=== PATIENT | male | born 2000 | race Caucasian/White ===

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

== ENCOUNTER → 2021-11-24 | Outpatient (CLI) | payer BC ==
--- NOTE | 2021-11-25 02:48 | MR ---
EXAMINATION TYPE: MR brain wo/w con DATE OF EXAM: 11/24/2021 COMPARISON: HISTORY: Migraines, and atypical visual spells, history of aneurysm CONTRAST: Standard multiplanar, multisequence MRI departmental protocol images were obtained without contrast a nd with 5.5 mL intravenous Gadavist gadolinium contrast. Ventricles are relatively large in this young patient. I do not see evidence for obstructive hydroce phalus. Diffusion images show no evidence of an acute infarct. Brainstem is intact. Corpus callosum is intact . Sella turcica appears normal. Rodriguez-white matter structures have fairly normal signal pattern. No ev idence of cerebral edema. There is a rounded 1 cm focus of enhancement in the posterior fossa on the right side adjacent to the transverse sinus that could be venous aneurysm. There is normal enhancement of the venous sinuses. IMPRESSION: Mild prominence of the ventricles but no sign of obstructive type hydrocephalus. No evidence of an ac [place] infarct. 1 cm focus of enhancement that could be venous aneurysm in the right lateral posterior f mariel. Mild right maxillary sinusitis
--- NOTE | 2021-11-25 03:43 | MR ---
EXAMINATION TYPE: MR angio head wo con DATE OF EXAM: 11/24/2021 COMPARISON: None HISTORY: Migraines, and atypical visual spells, history of aneurysm MR angiographic images of the brain obtained without contrast. There is arterial flow in the distal internal carotid arteries bilaterally. There is arterial flow in the vertebral basilar artery system. There is arterial flow in the anterior middle and posterior cerebral arteries. No evidence of any sig nificant flow in the posterior communicating arteries. No mass effect. No evidence of intracranial aneurysm or neovascularity. No evidence of hemodynamic st enosis. IMPRESSION: Negative MR angiogram of the brain.
== END | disposition home or self-care (01) ==
LOC: RADMRIMAIN 18:33
PROVIDERS: ATTEND Psychiatry & Neurology Neurology
DX: I67.1 Cerebral aneurysm, nonruptured (principal); H55.89 Other irregular eye movements; Q85.1 Tuberous sclerosis
CPT/HCPCS: 70544; 70553; A9585

== ENCOUNTER → 2024-03-10 | Outpatient (CLI) | payer BC ==
--- NOTE | 2024-04-03 11:31 | CONS ---
CONSULTATION HISTORY OF PRESENT ILLNESS: This is a 23-year-old male patient presenting with excessive fatigue and daytime sleepiness. Today, he is accompanied by the mother. The patient has been having this issue for several years. In fact, his symptoms got worse approximately 2 years ago after an open-heart cardiac surgery. He is known to have Sherin-Danlos syndrome and the patient was found to have a thoracic aortic aneurysm and a unicuspid/bicuspid aortic valve. He underwent an extensive cardiac surgery with replacement of aortic roots and surgical grafting of the ascending aorta that was done in [facility]. The patient's surgery was successful. Since then, he has been having excessive fatigue and daytime sleepiness as the patient is sleeping many hours and he is still feeling very much tired and sleepy during the day. He is driving, does not fall asleep while driving. No snoring. He goes to bed around 3 to 4 a.m. and gets out of bed around 1 p.m. in the evening. His functionality is impaired and he does not think he can go to classes or school because of his ongoing symptoms. He frequently wets his bed and he has symptoms of enuresis. His sleep is non-fragmented. His current Meally score is at 8. No grinding. No restlessness in lower extremities. He has chronic depression, currently on Prozac. No sleep paralysis. No cataplexy. He does have occasional hypnagogic hallucinations. No personal or family history of narcolepsy. No head trauma. No history of stroke. No substance abuse. No alcoholism. No excessive intake of caffeinated beverages. PAST MEDICAL HISTORY: 1. Sherin-Danlos syndrome. 2. Ascending aortic aneurysm, post surgical repair. 3. Bicuspid aortic valve. 4. Chronic anxiety/depression. 5. History of childhood attention deficit disorder. 6. History of childhood asthma, which is currently inactive and stable. 7. Nocturnal enuresis. FAMILY HISTORY: Positive for hypertension in maternal grandmother. Hyperlipidemia in maternal grandmother. Maternal grandfather had hypertension and hyperlipidemia in addition. Mother has cardiac arrhythmias including PVT, SVT, and AVNRT. Father has anxiety and obesity and attention deficit disorder. The patient has a sister with trisomy 21 syndrome and another brother with Sherin-Danlos syndrome. SURGICAL HISTORY: Includes surgical repair of an ascending aortic aneurysm including the aortic root. The patient also has had tonsillectomy and adenectomy, hernia repair and wisdom teeth removal. SOCIAL HISTORY: Nonsmoker. No history of alcohol. No history of IV drugs. MEDICATIONS: Include Prozac 40 mg p.o. daily. DRUG ALLERGIES: Not known. REVIEW OF SYSTEMS: A 14-point review of systems was done and positive findings are mentioned in above History of Present Illness. No recent weight gain. He has tiredness and sleepiness and difficulty with attention and memory and concentration. He has also history of depression. No heartburn. No palpitations. No panic. No sleep walking. Positive bedwetting and enuresis. No sleep talking. PHYSICAL EXAMINATION: VITAL SIGNS: BP is 120/77, pulse 67, respirations 16, temperature 98.2. Weight is 140 pounds, BMI 19.7. Meally score is at 8. Neck size is 14-1/3 of an inch. GENERAL APPEARANCE: Calm and comfortable. No acute distress. HEAD: Atraumatic, normocephalic. NECK: Supple. No JVD. No goiter or neck masses. Mallampati class 1. LUNGS: Diminished, otherwise clear. HEART: Sounds regular rate and rhythm. Normal S1, S2. Positive murmur, grade 2 along with thoracotomy scar over the anterior chest. ABDOMEN: Soft and nontender. No organomegaly. EXTREMITIES: No edema. No cyanosis or clubbing. ASSESSMENT: 1. Chronic hypersomnia, Meally score of 8. Exact etiology is not clear. Sleep apnea is doubtful. Narcolepsy is possible, although doubtful. Could be related to comorbidities as stated above. 2. Delayed sleep phase syndrome. 3. Sherin-Danlos syndrome. 4. Ascending aortic aneurysm, status post surgical repair. 5. Bicuspid aortic valve. 6. History of depression, maintained on Prozac. 7. Nocturnal enuresis. 8. History of childhood asthma. 9. History of childhood attention deficit disorder. PLAN: Discussed findings with the patient. My overall suspicion for sleep apnea is low. Nevertheless, based on his excessive fatigue and sleepiness, which is affecting daytime functionality, I think it is reasonable to do a PSG and second day MSLT to rule out the possibility of obstructive sleep apnea and rule out narcolepsy and at same time objectively quantify his daytime sleepiness. Obviously, he may be a good candidate for stimulation therapy at later stage depending on the PSG and MSLT findings. Maintain good sleep hygiene measures. He wants to maintain the same sleep schedule, which is quite delayed. We will continue Prozac for now. I suggested stopping the Prozac at least 2 weeks prior to the PSG/MSLT for testing purposes. We will continue to follow and make further recommendations based on the findings. MMODL / IJN: [id number] /
== END ==
LOC: 3 N SLEEP 13:00
PROVIDERS: ATTEND Internal Medicine Critical Care Medicine
CPT/HCPCS: 99211

== ENCOUNTER 2024-04-28 19:42 | Outpatient (CLI) | payer BC, OTHER ==
--- NOTE | 2024-05-04 21:53 | P.PCN ---
Date of Procedure: 04/28/24 Operative Findings: Polysomnography report Date of service is 04/28/2024 History A 23-year-old male patient presented to the sleep center with complaints of excessive fatigue and daytime sleepiness. The patient has been having this issue for several years. Symptoms got worse over the past 2 years following an open heart surgery. The patient has history of Sherin-Danlos syndrome and he was found to have a thoracic aortic aneurysm with a unicuspid/bicuspid aortic valve. He underwent extensive cardiac surgery and replacement of the aortic root and surgical grafting of the ascending aorta and this was done at [facility]. The patient has history of chronic anxiety/depression, childhood attention deficit disorder, asthma and nocturnal enuresis. The Gaylord score was 8. No reported snoring. He goes to bed at around 3 to 4 AM and gets out of bed at 1 PM in the morning. No sleep paralysis. No hallucinations. No cataplexy. No grinding. No restlessness in lower extremities and the patient has been on Prozac for chronic depression. Pertinent physical findings Weight is 130 pounds with a body mass index of 19.8 Technical description The patient was studied using a standard complex polysomnography protocol that included recording of the Lead II EKG, Central, occipital and frontal EEG, right and left outer canthus EOG, submental EMG, right and left anterior tibialis EMG, respiratory airflow by thermocouple and or pressure/flow transducer, respiratory efforts by abdominal and thoracic PVDF belts, oxygen saturation by cable oximetry. Position by observation synchronized the PSG. Equipment used: [employer]. Sleep architecture The total recording duration was 453 minutes. The total sleep time was 232.5 minutes. The wake after sleep onset time was 196.5 minutes. Overall sleep efficiency was 51.3%. The latency to sleep onset was 22.5 minutes. Latency to REM sleep was 45.5 minutes. The sleep architecture was characterized by 11.6% stage I, 2.2% stage I, 46.7% stage II, 39.6% stage III. The total arousal index was 10.1 Respiratory analysis The sleep study showed a total of 7 obstructive events of which 1 was obstructive apnea, 0 was mixed apneas 6 was obstructive hypopnea and the resulting apnea-hypopnea index was 4.4. The patient also had 10 central events with a central apnea index of 2.6. The respiratory arousal index was 0.8 Oxygenation analysis The baseline oxygen saturation was 96% while awake. Lowest pulse ox recorded during the sleep study was 90%. The patient spent majority of sleep time with a pulse ox of above 90%. Sleep continuity summary The patient had a total of 39 arousals with an index of 10.1. Respiratory arousal index was 0.8 Periodic limb movement summary None Cardiac summary Average heart rate was 66 with a minimum heart rate of 62 and a maximum heart rate of 73 and the rhythm was essentially sinus. Assessment No evidence of any significant sleep breathing disorder. AHI was 4.4. Central apnea index was 2.6 without any significant nocturnal oxygen saturation Poor sleep efficiency calculated to be at 51.3% Abnormal sleep architecture with over representation of stage III sleep along with diminished stage I and stage II and REM Delayed sleep phase syndrome chronic fatigue and sleepiness, Gaylord score of 8 Sherin-Danlos syndrome Ascending aortic aneurysm status postsurgical repair Bicuspid aortic valve Depression maintained on Prozac Childhood asthma ADHD Plan No need for CPAP therapy Symptoms are unlikely to be related to any form of sleep breathing disorder Regulating patient's sleep schedule as the patient has an obvious component of delayed sleep phase syndrome Implement good sleep hygiene principles Continue [facility] Will continue to follow
== END 2024-04-29 07:10 | disposition home or self-care (01) ==
LOC: 3 N SLEEP 19:42
PROVIDERS: ATTEND Internal Medicine Critical Care Medicine
CPT/HCPCS: 95810

== ENCOUNTER → 2024-06-02 | Outpatient (CLI) | payer BC, OTHER ==
[2024-06-02 16:06] VITALS: BP 122/71; PULSE 70; RESP 16; TEMP 97.5
--- NOTE | 2024-06-02 16:40 | P.PN ---
Progress Note - Text Progress Note Date: 06/02/24 On today's evaluation of 06/02/2024, the patient is coming in to discuss the results of the polysomnography that the patient underwent on 04/28/2024. In summary, the patient came to me for excessive fatigue and sleepiness. He also had delayed sleep phase syndrome as the patient was going to bed at around 3 to 4 AM and he was getting out of bed at 1 PM. The patient was also feeling excessively fatigued and sleepy. He remains on Prozac for chronic depression. He also has multiple comorbidities including history of Sherin-Danlos syndrome, bicuspid aortic valve, and he has had previous ascending aortic aneurysm repair. Based on all this, a polysomnography was done and the polysomnography did not show evidence of any sleep eating disorder. The patient AHI was 4.4. No evidence of any nocturnal oxygen desaturations. As expected, the overall sleep efficiency was poor at 61.3%. The sleep architecture was also abnormal with over representation of stage III sleep. This is part related to his delayed sleep phase syndrome. The results of the sleep study were discussed with the patient. He maintains the same sleep schedule. Blood pressure is 122/71 with a pulse of 70 and a respiration of 16 with a temperature of 97.5. Pulse ox is 99% room air oxygen The patient appeared well nourished and normally developed. Vital signs as documented. Head exam is unremarkable. No scleral icterus or corneal arcus noted. Neck is without jugular venous distension, thyromegaly, or carotid bruits. Carotid upstrokes are brisk bilaterally. Lungs are clear to auscultation and percussion. Cardiac exam reveals the PMI to be normally sized and situated. Rhythm is regular. First and second heart sounds normal. No murmurs, rubs or gallops. Abdominal exam reveals normal bowel sounds, no masses, no organomegaly and no aortic enlargement. Extremities are nonedematous and both femoral and pedal pulses are normal. Examination of the skin revealed no evidence of significant rashes, suspicious appearing nevi or other concerning lesions. Neurologically, the patient is awake and alert and the patient does not have any focal neurological deficit. Cranial nerves are essentially intact. Assessment Chronic hypersomnia, multifactorial. Rule out is connected to disease and comorbidities including depression contributing to his chronic fatigue and sleepiness. There is no evidence of any sleep breathing disorder. At the same time, the patient has delayed sleep phase syndrome which is probably is making this patient tired and sleepy during the day. As stated, there is no evidence of any significant sleep breathing disorder. AHI was 4.4. Central apnea index was 2.6 without any significant nocturnal oxygen saturation Poor sleep efficiency calculated to be at 51.3% Abnormal sleep architecture with over representation of stage III sleep along with diminished stage I and stage II and REM Delayed sleep phase syndrome chronic fatigue and sleepiness, Harrell score of 8 Sherin-Danlos syndrome Ascending aortic aneurysm status postsurgical repair Bicuspid aortic valve Depression maintained on Prozac Childhood asthma ADHD Plan I had a lengthy discussion with the patient No need for CPAP therapy Will implement good sleep hygiene measures Will try to regulate his sleep schedule and move this patient to an earlier time to go to bed and he will do this by moving his time to go to bed by 1 hour every week and trying to get out of bed earlier by 1 hour. premium card cancellation clerk blood st imulation will be also applied to gradually transition his sleep schedule with a goal of him going to sleep at midnight and waking at 9 AM in the morning. I do not see any signs of narcolepsy. However, I am going to assist this patient's daytime fatigue and sleepiness by stimulant therapy and I offered him Provigil 200 mg to be taken upon awakening in the morning. The goal is to regulate his sleep schedule and provide this patient daytime stimulation with Provigil. The patient was seen back in follow-up in 4 weeks time.
== END ==
LOC: 3 N SLEEP 14:39
PROVIDERS: ATTEND Internal Medicine Critical Care Medicine
DX: G47.10 Hypersomnia, unspecified (principal); F32.A Depression, unspecified; R53.82 Chronic fatigue, unspecified; G47.31 Primary central sleep apnea; G47.36 Sleep related hypoventilation in conditions classified elsewhere; Q79.60 Ehlers-Danlos syndrome, unspecified; J45.909 Unspecified asthma, uncomplicated; F90.9 Attention-deficit hyperactivity disorder, unspecified type; I71.21 Aneurysm of the ascending aorta, without rupture; Q23.81 Bicuspid aortic valve; Z79.899 Other long term (current) drug therapy
CPT/HCPCS: 99212